=== PATIENT | male | born 1970 | race Caucasian/White ===

== ENCOUNTER 2019-05-09 19:35 | Emergency (ER) | payer OTHER ==
[~2019-05-09] VITALS: Ht 172.7 cm; Wt 95.3 kg
[2019-05-09] MEDS ORDERED: AFRIN15 ML (20:01)
== END 2019-05-09 21:39 | disposition home or self-care (01) ==
LOC: ER 19:35
DX: S00.83XA Contusion of other part of head, initial encounter (principal); W22.8XXA Striking against or struck by other objects, initial encounter; Y93.89 Activity, other specified; Y92.098 Other place in other non-institutional residence as the place of occurrence of the external cause; Y99.8 Other external cause status

== ENCOUNTER 2021-12-01 10:42 | Emergency (ER) | payer OTHER ==
[~2021-12-01] VITALS: Ht 177.8 cm; Wt 95.3 kg
[~2021-12-01 10:42] MED LIST: AFRIN15 ML
[2021-12-01] MEDS ORDERED: VASOTEC2.5 MG PO (11:00)
== END 2021-12-01 16:04 | disposition home or self-care (01) ==
LOC: ER 10:42
DX: S00.83XA Contusion of other part of head, initial encounter (principal); S50.02XA Contusion of left elbow, initial encounter; S50.01XA Contusion of right elbow, initial encounter; S20.213A Contusion of bilateral front wall of thorax, initial encounter; S30.1XXA Contusion of abdominal wall, initial encounter; W18.39XA Other fall on same level, initial encounter; Y93.89 Activity, other specified; Y92.098 Other place in other non-institutional residence as the place of occurrence of the external cause; Y99.8 Other external cause status; I10 Essential (primary) hypertension

== ENCOUNTER 2022-08-11 19:48 | Emergency (ER) | payer OTHER ==
[~2022-08-11] VITALS: Ht 172.7 cm; Wt 97.5 kg
[~2022-08-11 19:48] MED LIST changes: +VASOTEC2.5 MG PO
[2022-08-12] MEDS ORDERED: ZEGERID 20 MG1 EACH PO (01:25)
== END 2022-08-12 01:51 | disposition home or self-care (01) ==
LOC: ER 19:48
DX: R10.9 Unspecified abdominal pain (principal); I10 Essential (primary) hypertension; Z88.0 Allergy status to penicillin; Z88.6 Allergy status to analgesic agent